=== PATIENT | female | born 1960 | race Caucasian/White ===

== ENCOUNTER 2017-05-22 14:40 | Day surgery (SDC) | payer BC ==
[2017-05-22 15:18] VITALS: TEMP 98.4
[2017-05-22] MEDS ORDERED: LR 1,000 ML IV ONE (15:18)
--- NOTE | 2017-05-22 16:01 | PDGENHP ---
History & Physical Chief Complaint: screen History of Present Illness: screen Pertinent Past, Social, Family History: N/A Relevant Physical Exam: cor RRR, pul CTAP, abd obese, ms normal Cardiorespiratory Assessment: As per anesthesia.
[2017-05-22] MEDS ORDERED: MIDAZOLAM 2 MG/2 ML VIAL IVP ONE (16:10)
--- NOTE | 2017-05-22 16:10 | PDANEPAE ---
ANE Past Medical History - Cardiovascular History Hx Hypertension: Yes Hx Arrhythmias: No Hx Chest Pain: No Hx Coronary Artery / Peripheral Vascular Disease: No Hx CHF / Valvular Disease: No Hx Palpitations: No - Pulmonary History Hx COPD: No Hx Asthma/Reactive Airway Disease: No Hx Recent Upper Respiratory Infection: No Hx Oxygen in Use at Home: No Hx Sleep Apnea: No Sleep Apnea Screening Result - Last Documented: Negative - Neurologic History Hx Cerebrovascular Accident: No Hx Seizures: No Hx Dementia: No - Endocrine History Hx Diabetes: No - Renal History Hx Renal Disorders: No - Liver History Hx Hepatic Disorders: No - Neurological & Psychiatric Hx Hx Neurological and Psychiatric Disorders: Yes Neurological / Psychiatric History Comment: anxiety and depression - Cancer History Hx Cancer: Yes Cancer History Comment: melanoma - Congenital Disorder History Hx Congenital Disorders: No - GI History Hx Gastrointestinal Disorders: No - Chronic Pain History Chronic Pain: Yes (neck and back) - Surgical History Prior Surgeries: knee surgeries x 4. back surgeries x 2. cervical fusion. hysterectomy. melanoma removed right calf ANE Review of Systems - Exercise capacity METS (RN): 4 METS ANE Patient History - Allergies Allergies/Adverse Reactions: penicillin G [Penicillin G] Allergy (Severe, Verified 01/13/10 14:48) Other-Enter Comments latex [Latex] Allergy (Mild, Verified 01/13/10 14:55) Rash succinylcholine Allergy (Verified 02/14/17 11:53) Other-Enter Comments CHICKEN/EGGS Allergy (Intermediate, Uncoded 01/13/10 14:55) Hives HAYFEVER Allergy (Mild, Uncoded 01/13/10 14:56) Other-Enter Comments - Home Medications Home Medications: Belsomra 02/14/17 [Last Taken 05/21/17] Centrum Complete Multivit Tab 02/14/17 [Last Taken 05/20/17] Crestor 02/14/17 [Last Taken 04/17/17] DULoxetine 02/14/17 [Last Taken 05/21/17] Fentanyl 02/14/17 [Last Taken 05/21/17] Hydrochlorothiazide 02/14/17 [Last Taken 04/10/17] Lyrica 02/14/17 [Last Taken 05/22/17 07:00] Movantik 02/14/17 [Last Taken 05/17/17] Percocet 10-325 mg Tablet 02/14/17 [Last Taken 05/22/17 07:00] Preservision Areds Tablet 02/14/17 [Last Taken 05/21/17] Relpax 02/14/17 [Last Taken 05/21/17] Tizanidine HCl 02/14/17 [Last Taken 05/22/17 07:00] VITAMIN D 02/14/17 [Last Taken 05/20/17] Xanax 02/14/17 [Last Taken 05/20/17] Zyrtec 02/14/17 [Last Taken 05/21/17 07:00] - NPO status NPO Since - Liquids (Date): 05/22/17 NPO Since - Liquids (Time): 13:00 NPO Since - Solids (Date): 05/21/17 NPO Since - Solids (Time): 04:00 - Smoking Hx Smoking Status: Never smoked - Family Anes Hx Family Hx Anesthesia Complications: none ANE Labs/Vital Signs - Vital Signs Blood Pressure: 162/95 Heart Rate: 83 Respiratory Rate: 16 O2 Sat (%): 95 Height: 172.72 cm Weight: 86.183 kg ANE Physical Exam - ASA Status ASA Status: III ANE Anesthesia Plan Anesthesia Plan: MAC
--- NOTE | 2017-05-22 16:54 | POSTOPPROG ---
Post Op Note Date of Operation: 05/22/17 Surgeon: Yoshi Hawkins Pre-op Diagnosis: screen Post-op Diagnosis: screen Indication: screen Procedure: colon Findings: normal Inf/Abcess present in the surg proc area at time of surgery?: No Complications: None
[2017-05-22] MEDS ORDERED: NALOXONE HCL 0.4 MG/ML INJ IVP PRN (17:03)
--- NOTE | 2017-05-22 17:04 | POSTANESTH ---
Post Anesthetic Evaluation Respiratory Status: Normal, Stable Level of Consciousness/Mental Status: Can Participate in Eval Pain Control: Adequate, Prn Tx Ordered Nausea/Vomiting Control: Adequate, Prn Tx Ordered Complications Possibly Related to Anesthesia: None Noted (alert oriented in pacu )
[2017-05-22 17:27] VITALS: BP 145/86; PULSE 74; RESP 13; O2SAT 92
--- NOTE | 2017-05-23 02:24 | GPN ---
[f rep st] PROCEDURE NOTE DATE OF PROCEDURE: 05/22/2017 PROCEDURE: Colonoscopy. PRE-PROCEDURE DIAGNOSIS: Family history of colon cancer, in her mother, at age 75. Normal colonosc opy 8 years prior. POSTPROCEDURE DIAGNOSIS: Normal colonoscopy. PREMEDICATION: As per Anesthesia. COMPLICATIONS: None. FINDINGS: After informed consent was obtained, the patient was placed in left lateral decubitus pos ition. Video adult colonoscope was placed in rectum advanced to the terminal ilium. Upon slow with drawal, the colon was normal. There were some mildly hypertrophied anal papilla. IMPRESSION: No colon polyps or cancer. PLAN: Repeat colonoscopy in 10 years, based on the latest [employer] guid elines. Thank you for allowing me to help in the care of this patient. /[id number]/MODL
== END 2017-05-22 17:41 | disposition home or self-care (01) ==
LOC: FSGY 14:40
PROVIDERS: ATTEND Internal Medicine Gastroenterology
PROC: 0DJD8ZZ Inspection of Lower Intestinal Tract, Via Natural or Artificial Opening Endoscopic (ICD-10-PCS; principal; 2017-05-22 16:00)
DX: Z12.11 Encounter for screening for malignant neoplasm of colon (principal); Z80.0 Family history of malignant neoplasm of digestive organs
CPT/HCPCS: J2250